=== PATIENT | male | born 1985 | race Two or more races ===

== ENCOUNTER 2023-12-22 16:57 | Emergency (ER) | payer OTHER ==
[~2023-12-22] VITALS: Ht 182.9 cm; Wt 90.7 kg
[~2023-12-22 16:57] MED LIST: DEPAKOTE ER500 MG PO; ECOTRIN81 MG; NEURONTIN300 MG PO; ZESTRIL20 MG PO
[2023-12-22] MEDS ORDERED: NORFLEX100MG PO (21:41)
== END 2023-12-22 22:00 ==
LOC: ER 16:59
DX: S89.81XA Other specified injuries of right lower leg, initial encounter (principal); W01.0XXA Fall on same level from slipping, tripping and stumbling without subsequent striking against object, initial encounter; Y93.89 Activity, other specified; Y92.59 Other trade areas as the place of occurrence of the external cause; S99.811A Other specified injuries of right ankle, initial encounter; Z88.8 Allergy status to other drugs, medicaments and biological substances; I10 Essential (primary) hypertension; F32.89 Other specified depressive episodes; S20.229A Contusion of unspecified back wall of thorax, initial encounter
CPT/HCPCS: 72100; 73560; 73610; 73630; 96372; 99283; J2360

== ENCOUNTER 2024-01-24 15:35 | Emergency (ER) | payer OTHER ==
[~2024-01-24] VITALS: Ht 180.3 cm; Wt 90.7 kg
[~2024-01-24 15:35] MED LIST changes: +NORFLEX100MG PO
[2024-01-24] MEDS ORDERED: CEFTRIAXONE SODIUM 1,000 MG VIAL IM ONE (17:15)
[2024-01-24] MEDS ORDERED: KETOROLAC TROMETHAMINE 60 MG VIAL IM ONE (17:15)
== END 2024-01-24 17:22 | disposition home or self-care (01) ==
LOC: ER 15:36
DX: S60.572A Other superficial bite of hand of left hand, initial encounter (principal); W54.0XXA Bitten by dog, initial encounter; Y93.9 Activity, unspecified; Y92.89 Other specified places as the place of occurrence of the external cause; Y99.9 Unspecified external cause status; Z88.8 Allergy status to other drugs, medicaments and biological substances

== ENCOUNTER 2024-06-02 19:14 | Emergency (ER) | payer OTHER ==
[~2024-06-02] VITALS: Ht 167.6 cm; Wt 113.4 kg
[2024-06-02] MEDS ORDERED: MICATIN14 GM TOP (23:37)
[2024-06-02] MEDS ORDERED: NASAL MIST126 ML NASAL (23:37)
== END 2024-06-02 23:48 | disposition home or self-care (01) ==
LOC: ER 19:15
DX: S09.8XXA Other specified injuries of head, initial encounter (principal); Y08.89XA Assault by other specified means, initial encounter; Y93.89 Activity, other specified; Y92.89 Other specified places as the place of occurrence of the external cause; Y99.8 Other external cause status; Z88.6 Allergy status to analgesic agent

== ENCOUNTER 2024-06-29 16:16 | Emergency (ER) | payer OTHER ==
[~2024-06-29] VITALS: Ht 200.7 cm; Wt 133.4 kg
[~2024-06-29 16:16] MED LIST changes: +MICATIN14 GM TOP; +NASAL MIST126 ML NASAL
[2024-06-29] MEDS ORDERED: DECADRON (16:43)
[2024-06-29] MEDS ORDERED: CLINDAMYCIN PHOSPHATE 150 MG/ML (900mg) ONE (18:10)
[2024-06-29] MEDS ORDERED: CLINDAMYCIN PHOSPHATE 150 MG/ML (600mg) IV ONE (18:15)
[2024-06-29] MEDS ORDERED: 0.9 % SODIUM CHLORIDE 1,000 ML IV ONE (18:15)
[2024-06-29 18:31] LABS: HEMATOCRIT 44.3 % (39.0-48.0); HEMOGLOBIN 14.8 g/dL (13-16.00); MEAN CELL VOLUME 83.4 fL (80.0-100.00); MEAN CORPUSCULAR HEMOGLOBIN 27.8 pg (27.00-32.0); MEAN CORPUSCULAR HGB CONC 33.4 g/dl (32.0-36.0); PLATELET COUNT 228 K/uL (150-450); RED BLOOD COUNT 5.31 M/uL (4.00-6.00); RED CELL DISTRIBUTION WIDTH 14.5 % (11.5-14.5)
[2024-06-29 18:51] LABS: ERYTHROCYTE SEDIMENTATION RATE 4 mm/hr
[2024-06-29 19:37] LABS: ANION GAP 8 (10.0-20.0); BLOOD UREA NITROGEN 12 mg/dL (7-18); BUN CREA RATIO 16 (7.0-25.0); CALCIUM 9.6 mg/dL (8.5-10.1); CARBON DIOXIDE 32 mEq/L (21-32); CHLORIDE 104 mmol/L (98-107); CREATININE SERUM 0.76 mg/dL (0.70-1.30); GFR 114.78; GLUCOSE FASTING 83 mg/dL (65-100); OSMOLALITY SERUM 278 MOSM/KG (275-295); POTASSIUM 4.03 mEq/L (3.5-5.1); SODIUM 140 mmol/L (136-145)
[2024-06-29 19:45] LABS: C-REACTIVE PROTEIN < 0.29 MG/DL (0.00-0.29)
== END 2024-06-29 20:41 | disposition home or self-care (01) ==
LOC: ER 16:17
PROVIDERS: General Practice
DX: L97.819 Non-pressure chronic ulcer of other part of right lower leg with unspecified severity (principal); Z88.8 Allergy status to other drugs, medicaments and biological substances; I10 Essential (primary) hypertension

== ENCOUNTER 2024-07-15 18:16 | Inpatient (IN) | payer OTHER ==
[~2024-07-15] VITALS: Ht 170.2 cm; Wt 86.2 kg
[~2024-07-15 18:16] MED LIST changes: +DECADRON
--- NOTE | 2024-07-15 19:15 | NUR ---
SE RECIBE MASCULINO ALERTA Y ORIENTADO X3 CUAL REFIERE PRESENTA DAVINA ULCERA EN PIE DERECHO QUE NO MEJORA. SE BELEN S/V Y SE UBICA.
[2024-07-15] MEDS ORDERED: CEFTRIAXONE SODIUM 2,000 MG VIAL IV STA (19:43)
[2024-07-15] MEDS ORDERED: CEFTRIAXONE SODIUM 2,000 MG VIAL ONE (19:47)
--- NOTE | 2024-07-15 20:05 | NUR ---
SE STAR MUESTRA DE LABS SE CANALIZA Y SE ADMINISTRA MED ALLEN ORDEN MEDICA
[2024-07-15 20:07] LABS: HEMATOCRIT 43.2 % (39.0-48.0); HEMOGLOBIN 14.6 g/dL (13-16.00); MEAN CELL VOLUME 84.1 fL (80.0-100.00); MEAN CORPUSCULAR HEMOGLOBIN 28.5 pg (27.00-32.0); MEAN CORPUSCULAR HGB CONC 33.9 g/dl (32.0-36.0); PLATELET COUNT 241 K/uL (150-450); RED BLOOD COUNT 5.13 M/uL (4.00-6.00); RED CELL DISTRIBUTION WIDTH 13.7 % (11.5-14.5)
[2024-07-15 20:21] LABS: CALCIUM 9.4 mg/dL (8.5-10.1); CREATININE SERUM 0.82 mg/dL (0.70-1.30); GFR 105.15; POTASSIUM 4.2 mEq/L (3.5-5.1)
[2024-07-15] MEDS ORDERED: PROMETHAZINE HCL 25 MG/ML AMPUL IM ONE (23:45)
[2024-07-15] MEDS ORDERED: ACETAMINOPHEN 500 MG GEL..CAP PO PRN (23:45)
[2024-07-15] MEDS ORDERED: MEPERIDINE HCL/PF 25 MG/ML VIAL IM ONE (23:45)
[2024-07-15] MEDS ORDERED: 0.9 % SODIUM CHLORIDE 1,000 ML IV SCH (23:45)
[2024-07-15] MEDS ORDERED: VANCOMYCIN HCL 1,000 MG VIAL IV SCH (23:52)
[2024-07-15] MEDS ORDERED: DIVALPROEX SODIUM 500 MG TABLET.DR PO SCH (23:54)
[2024-07-16 02:49] LABS: INR 1.02; PARTIAL THROMBOPLASTIN TIME 28.2 SECONDS (22.0-34.0); PROTHROMBIN TIME 11.1 SECONDS (9.0-11.5)
[2024-07-16] MEDS ORDERED: MEPERIDINE HCL/PF 25 MG/ML VIAL IM SCH (05:00)
[2024-07-16 05:14] LABS: PH,URINE 5.5 (5.0-8.0); URINE APPEARANCE Clear; URINE BILIRRUBIN Negative (NEGATIVE); URINE BLOOD Negative; URINE COLOR Yellow; URINE GLUCOSE Negative (NEGATIVE); URINE KETONE Negative (NEGATIVE); URINE LEUKOCYTE Negative; URINE NITRATE Negative; URINE PROTEIN Negative (NEGATIVE); URINE UROBILINOGEN 0.2 E.U./dl
[2024-07-16 05:15] LABS: URINE BACTERIA 7.5 uL (0.0-1933); URINE RBC 2.4 uL (0.0-20.8); URINE WBC 2.6 uL (0.0-23.2)
[2024-07-16 05:37] LABS: URINE EPITHELIAL CELLS 0.6 uL (0.0-38.8)
[2024-07-16 08:33] VITALS: BP 130/83; O2SAT 99
[2024-07-16] MEDS ORDERED: LISINOPRIL 20 MG TABLET PO SCH (09:00)
[2024-07-16] MEDS ORDERED: FAMOTIDINE/PF 20 MG in 0.9 % SODIUM CHLORIDE 8 ML IV PUSH SCH (09:00)
[2024-07-16] MEDS ORDERED: CEFTRIAXONE SODIUM 2,000 MG in 0.9 % SODIUM CHLORIDE 100 ML IV SCH (09:00)
[2024-07-16 15:08] VITALS: BP 146/76; O2SAT 100
[2024-07-17 00:29] VITALS: BP 147/81; O2SAT 98
[2024-07-17 08:16] VITALS: BP 134/84; O2SAT 99
[2024-07-17 15:38] VITALS: BP 113/58; O2SAT 99
== END 2024-07-17 17:19 | disposition left against medical advice (07) | DRG 264 ==
LOC: ER 18:18 → SEC-K 23:56 → O/R 07-16 10:39 → SEC-K 07-16 10:40 → MEDI 07-17 15:10
PROVIDERS: General Practice; ADMIT Internal Medicine; ATTEND Internal Medicine
PROC: B54DZZZ Ultrasonography of Bilateral Lower Extremity Veins (ICD-10-PCS; 2024-07-15)
PROC: 0JBQ0ZZ Excision of Right Foot Subcutaneous Tissue and Fascia, Open Approach (ICD-10-PCS; principal; 2024-07-16)
PROC: B44HZZZ Ultrasonography of Bilateral Lower Extremity Arteries (ICD-10-PCS; 2024-07-16)
DX: I83.013 Varicose veins of right lower extremity with ulcer of ankle (principal); L97.313 Non-pressure chronic ulcer of right ankle with necrosis of muscle; I87.2 Venous insufficiency (chronic) (peripheral); E66.01 Morbid (severe) obesity due to excess calories; I10 Essential (primary) hypertension; F99 Mental disorder, not otherwise specified

== ENCOUNTER 2024-07-18 15:39 | Inpatient (IN) | payer OTHER ==
[~2024-07-18] VITALS: Ht 200.7 cm; Wt 133.4 kg
[2024-07-18] MEDS ORDERED: FAMOtidine 10 MG/ML (4ML VIAL) IV ONE (16:30)
[2024-07-18] MEDS ORDERED: 0.9 % SODIUM CHLORIDE 1,000 ML IV ONE (16:30)
[2024-07-18] MEDS ORDERED: FAMOTIDINE/PF 20 MG/2 ML VIAL ONE (16:45)
[2024-07-18] MEDS ORDERED: GABAPENTIN 300 MG CAPSULE PO SCH (17:00)
[2024-07-18 17:19] LABS: HEMATOCRIT 41.7 % (39.0-48.0); MEAN CELL VOLUME 83.8 fL (80.0-100.00); MEAN CORPUSCULAR HEMOGLOBIN 28.1 pg (27.00-32.0); MEAN CORPUSCULAR HGB CONC 33.6 g/dl (32.0-36.0); PLATELET COUNT 232 K/uL (150-450); RED BLOOD COUNT 4.98 M/uL (4.00-6.00); RED CELL DISTRIBUTION WIDTH 14.3 % (11.5-14.5)
[2024-07-18 17:30] LABS: INR 1.03; PROTHROMBIN TIME 11.2 SECONDS (9.0-11.5)
[2024-07-18 17:34] LABS: BILIRUBIN TOTAL 0.28 mg/dL (0.3-1.2); CREATININE SERUM 0.86 mg/dL (0.70-1.30); GFR 99.52; POTASSIUM 4.33 mEq/L (3.5-5.1)
[2024-07-18 17:56] LABS: URINE APPEARANCE Clear; URINE BILIRRUBIN Negative (NEGATIVE); URINE BLOOD Negative; URINE COLOR Yellow; URINE GLUCOSE Negative (NEGATIVE); URINE KETONE Negative (NEGATIVE); URINE LEUKOCYTE Negative; URINE NITRATE Negative; URINE PROTEIN Negative (NEGATIVE); URINE UROBILINOGEN 0.2 E.U./dl
[2024-07-18 17:57] LABS: URINE RBC 2.9 uL (0.0-20.8)
[2024-07-18 17:58] LABS: URINE BACTERIA 0 uL (0.0-1933); URINE EPITHELIAL CELLS 0.1 uL (0.0-38.8); URINE WBC 0 uL (0.0-23.2)
[2024-07-18] MEDS ORDERED: 0.9 % SODIUM CHLORIDE 1,000 ML IV SCH (18:45)
[2024-07-18] MEDS ORDERED: CEFTRIAXONE SODIUM 2,000 MG in 0.9 % SODIUM CHLORIDE 100 ML IV SCH (19:00)
[2024-07-18] MEDS ORDERED: FAMOTIDINE/PF 20 MG in 0.9 % SODIUM CHLORIDE 8 ML IV PUSH SCH (19:01)
[2024-07-18] MEDS ORDERED: CEFTRIAXONE SODIUM 2,000 MG VIAL ONE (19:41)
[2024-07-18 23:08] VITALS: BP 151/77; O2SAT 100
[2024-07-19 02:15] VITALS: BP 160/75; O2SAT 97
[2024-07-19] MEDS ORDERED: ENOXAPARIN SODIUM 40 MG/0.4 ML SYRINGE SUBCUTANEO SCH (09:00)
[2024-07-19] MEDS ORDERED: LISINOPRIL 20 MG TABLET PO SCH (09:00)
[2024-07-19 09:07] VITALS: BP 127/61; O2SAT 99
[2024-07-19] MEDS ORDERED: FAMOTIDINE/PF 20 MG/2 ML VIAL ONE (09:13)
[2024-07-19] MEDS ORDERED: DIVALPROEX SODIUM 500 MG TABLET.DR PO SCH (17:00)
[2024-07-19] MEDS ORDERED: AMPICILLIN SODIUM/SULBACTAM NA 3,000 MG VIAL IV SCH (18:00)
[2024-07-19 18:59] VITALS: BP 137/76
[2024-07-20 03:30] VITALS: BP 118/63; O2SAT 98
[2024-07-20] MEDS ORDERED: FAMOTIDINE/PF 20 MG/2 ML VIAL ONE (08:17)
[2024-07-20 10:14] VITALS: BP 166/82
[2024-07-20] MEDS ORDERED: ACETAMINOPHEN 500 MG GEL..CAP PO PRN (10:15)
[2024-07-20 18:57] VITALS: BP 140/85; O2SAT 97
[2024-07-21 02:01] VITALS: BP 143/80; O2SAT 95
[2024-07-21] MEDS ORDERED: FAMOTIDINE/PF 20 MG/2 ML VIAL ONE (08:26)
[2024-07-21 09:22] VITALS: BP 145/84
[2024-07-21 20:18] VITALS: BP 160/85; O2SAT 98
[2024-07-22 01:44] VITALS: BP 142/101; BP 150/90; O2SAT 100; O2SAT 96
[2024-07-22 09:38] VITALS: BP 125/76
[2024-07-22 16:00] VITALS: BP 153/89
[2024-07-23 09:36] VITALS: BP 162/84; O2SAT 98
[2024-07-23 18:20] VITALS: BP 144/90
[2024-07-24 02:00] VITALS: BP 136/67
[2024-07-24 07:51] LABS: HEMATOCRIT 39.6 % (39.0-48.0); HEMOGLOBIN 13.3 g/dL (13-16.00); MEAN CELL VOLUME 85.6 fL (80.0-100.00); MEAN CORPUSCULAR HEMOGLOBIN 28.8 pg (27.00-32.0); MEAN CORPUSCULAR HGB CONC 33.7 g/dl (32.0-36.0); PLATELET COUNT 199 K/uL (150-450); RED BLOOD COUNT 4.62 M/uL (4.00-6.00); RED CELL DISTRIBUTION WIDTH 13.9 % (11.5-14.5)
[2024-07-24 08:51] VITALS: BP 157/96
[2024-07-24 09:14] LABS: ALBUMIN 3.4 gm/dL (3.4-5.0); BILIRUBIN TOTAL 0.3 mg/dL (0.3-1.2); CALCIUM 8.7 mg/dL (8.5-10.1); CREATININE SERUM 0.89 mg/dL (0.70-1.30); GFR 95.66; GLOBULINA 3.2 G/DL (2.4-3.5); POTASSIUM 4.19 mEq/L (3.5-5.1); TOTAL PROTEIN 6.6 gm/dL (6.4-8.2)
[2024-07-24 18:43] VITALS: BP 122/72; O2SAT 98
[2024-07-25 02:00] VITALS: BP 137/83
[2024-07-25 09:21] VITALS: BP 162/80
[2024-07-25 18:05] VITALS: BP 159/54
[2024-07-26 01:29] VITALS: BP 126/72; O2SAT 97
== END 2024-07-26 11:24 | disposition home or self-care (01) | DRG 982 ==
LOC: ER 15:40 → MEDJ 19:51
PROVIDERS: General Practice; ADMIT Internal Medicine; ATTEND Internal Medicine
PROC: 0JDQ0ZZ Extraction of Right Foot Subcutaneous Tissue and Fascia, Open Approach (ICD-10-PCS; 2024-07-19)
PROC: 0JDQ0ZZ Extraction of Right Foot Subcutaneous Tissue and Fascia, Open Approach (ICD-10-PCS; principal; 2024-07-24)
DX: I83.013 Varicose veins of right lower extremity with ulcer of ankle (principal); L97.319 Non-pressure chronic ulcer of right ankle with unspecified severity; L08.9 Local infection of the skin and subcutaneous tissue, unspecified; B96.89 Other specified bacterial agents as the cause of diseases classified elsewhere; I10 Essential (primary) hypertension; F99 Mental disorder, not otherwise specified; E66.9 Obesity, unspecified; I87.2 Venous insufficiency (chronic) (peripheral)

== ENCOUNTER 2024-10-21 20:41 | Emergency (ER) | payer OTHER ==
[~2024-10-21] VITALS: Ht 180.3 cm; Wt 113.4 kg
[2024-10-21] MEDS ORDERED: CEFTRIAXONE SODIUM 1,000 MG VIAL IV ONE (21:15)
[2024-10-21 23:19] LABS: HEMATOCRIT 43.9 % (39.0-48.0); HEMOGLOBIN 14.2 g/dL (13-16.00); MEAN CORPUSCULAR HEMOGLOBIN 27.1 pg (27.00-32.0); MEAN CORPUSCULAR HGB CONC 32.3 g/dl (32.0-36.0); PLATELET COUNT 263 K/uL (150-450); RED BLOOD COUNT 5.22 M/uL (4.00-6.00); RED CELL DISTRIBUTION WIDTH 13.9 % (11.5-14.5)
[2024-10-21 23:55] LABS: ALBUMIN 3.8 gm/dL (3.4-5.0); BILIRUBIN TOTAL 0.21 mg/dL (0.3-1.2); CALCIUM 9.1 mg/dL (8.5-10.1); CREATININE SERUM 0.99 mg/dL (0.70-1.30); GFR 84.6; GLOBULINA 4.1 G/DL (2.4-3.5); POTASSIUM 3.89 mEq/L (3.5-5.1); TOTAL PROTEIN 7.9 gm/dL (6.4-8.2)
[2024-10-22 00:02] LABS: C-REACTIVE PROTEIN 1.03 MG/DL (0.00-0.29)
[2024-10-22 00:34] LABS: ERYTHROCYTE SEDIMENTATION RATE 34 mm/hr
== END 2024-10-22 03:16 | disposition home or self-care (01) ==
LOC: ER 20:41
PROVIDERS: General Practice
DX: R60.0 Localized edema (principal); Z88.8 Allergy status to other drugs, medicaments and biological substances; I83.015 Varicose veins of right lower extremity with ulcer other part of foot; I83.025 Varicose veins of left lower extremity with ulcer other part of foot; L97.828 Non-pressure chronic ulcer of other part of left lower leg with other specified severity; L97.818 Non-pressure chronic ulcer of other part of right lower leg with other specified severity; I12.9 Hypertensive chronic kidney disease with stage 1 through stage 4 chronic kidney disease, or unspecified chronic kidney disease

== ENCOUNTER → 2025-04-30 | Emergency (ER) | payer OTHER | END | disposition left against medical advice (07) | LOC: ER 11:44 | DX: Z53.21 Procedure and treatment not carried out due to patient leaving prior to being seen by health care provider (principal) ==

== ENCOUNTER 2025-06-26 17:09 | Emergency (ER) | payer OTHER ==
[~2025-06-26] VITALS: Ht 180.3 cm; Wt 138.3 kg
[2025-06-26] MEDS ORDERED: PIPERACILLIN/TAZOBACTAM SODIUM 3.375 GM VIAL IV ONE ×2 (18:45→19:08)
[2025-06-26 19:35] LABS: BASO % 0.5 % (0.1-1.2); EOS # 0.30 (0.04-0.54); EOS % 2.7 % (0.7-7.0); LYMPH # 2.19 (1.18-3.74); LYMPH % 20.1 % (19.3-53.1); MEAN PLATELET VOLUME 9.90 fl (9.4-12.4); MONO # 0.83 (0.24-0.82); MONO % 7.6 % (4.7-12.5); NEUT # 7.51 (1.56-6.13); NEUT % 68.8 % (34.0-71.1); RED CELL DISTRIBUTION WIDTH 13.0 % (11.6-14.4)
[2025-06-26 19:40] LABS: ERYTHROCYTE SEDIMENTATION RATE 6 mm/hr (0-15)
[2025-06-26 19:59] LABS: ALT/SGPT 25 U/L (12-78); AST/SGOT 18 U/L (15-37); BILIRUBIN TOTAL 0.24 mg/dL (0.3-1.2); BUN CREA RATIO 20 (7.0-25.0); CREATININE SERUM 0.76 mg/dL (0.70-1.30); GFR 114.18; GLOBULINA 3.2 G/DL (2.4-3.5); GLUCOSE FASTING 76 mg/dL (65-100); OSMOLALITY SERUM 279 MOSM/KG (275-295)
[2025-06-26] MEDS ORDERED: PEPCID AC20 MG PO (20:16)
[2025-06-26] MEDS ORDERED: CEFUROXIME500 MG PO (20:16)
== END 2025-06-26 20:50 | disposition home or self-care (01) ==
LOC: ER 17:12
PROVIDERS: General Practice
DX: L03.90 Cellulitis, unspecified (principal); R60.0 Localized edema; I10 Essential (primary) hypertension; E11.9 Type 2 diabetes mellitus without complications; Z88.6 Allergy status to analgesic agent

== ENCOUNTER 2025-07-14 16:02 | Inpatient (IN) | payer OTHER ==
[~2025-07-14] VITALS: Ht 177.8 cm; Wt 149.7 kg
[~2025-07-14 16:02] MED LIST changes: +CEFUROXIME500 MG PO; +PEPCID AC20 MG PO
[2025-07-14] MEDS ORDERED: ATIVAN0.5 M1 PO (16:15)
[2025-07-14] MEDS ORDERED: VANCOMYCIN HCL 1,000 MG VIAL IV ONE (16:45)
[2025-07-14 17:15] LABS: BASO % 0.4 % (0.1-1.2); EOS # 0.31 (0.04-0.54); EOS % 2.9 % (0.7-7.0); LYMPH # 1.85 (1.18-3.74); LYMPH % 17.5 % (19.3-53.1); MEAN PLATELET VOLUME 9.90 fl (9.4-12.4); MONO # 0.67 (0.24-0.82); MONO % 6.3 % (4.7-12.5); NEUT # 7.65 (1.56-6.13); NEUT % 72.5 % (34.0-71.1); RED CELL DISTRIBUTION WIDTH 12.6 % (11.6-14.4)
[2025-07-14 17:23] LABS: ERYTHROCYTE SEDIMENTATION RATE 18 mm/hr (0-15)
[2025-07-14 18:06] LABS: ALT/SGPT 26.0 U/L (12-78); AST/SGOT 14.0 U/L (15-37); BILIRUBIN TOTAL 0.19 mg/dL (0.3-1.2); BUN CREA RATIO 21.0 (7.0-25.0); CREATININE SERUM 0.72 mg/dL (0.70-1.30); GFR 121.53; GLOBULINA 3.8 G/DL (2.4-3.5); GLUCOSE FASTING 138.0 mg/dL (65-100); OSMOLALITY SERUM 279.0 MOSM/KG (275-295)
[2025-07-14] MEDS ORDERED: 0.9 % SODIUM CHLORIDE 1,000 ML IV SCH (18:30)
[2025-07-14] MEDS ORDERED: VANCOMYCIN HCL 1,000 MG VIAL IV SCH (18:35)
[2025-07-14] MEDS ORDERED: CEFTRIAXONE SODIUM 2,000 MG in 0.9 % SODIUM CHLORIDE 100 ML IV SCH (18:35)
[2025-07-14] MEDS ORDERED: FAMOTIDINE/PF 20 MG in 0.9 % SODIUM CHLORIDE 8 ML IV PUSH SCH (18:36)
[2025-07-14] MEDS ORDERED: GABAPENTIN 300 MG CAPSULE PO SCH (18:37)
[2025-07-14] MEDS ORDERED: ACETAMINOPHEN 500 MG GEL..CAP PO PRN (18:45)
[2025-07-14] MEDS ORDERED: ONDANSETRON HCL 4 MG in 0.9 % SODIUM CHLORIDE 50 ML IV PRN (18:45)
[2025-07-14 22:55] LABS: INR 0.96
[2025-07-15 02:11] VITALS: BP 170/69; O2SAT 94
[2025-07-15 08:37] VITALS: BP 156/94; O2SAT 99
[2025-07-15] MEDS ORDERED: LISINOPRIL 20 MG TABLET PO SCH (09:00)
[2025-07-15] MEDS ORDERED: DIVALPROEX SODIUM 500 MG TABLET.DR PO SCH ×2 (09:00→21:00)
[2025-07-15] MEDS ORDERED: ENOXAPARIN SODIUM 40 MG/0.4 ML SYRINGE SUBCUTANEO SCH (09:00)
[2025-07-15] MEDS ORDERED: PHENOL 177 ML BOTTLE MM SCH (09:00)
[2025-07-15 16:53] VITALS: BP 153/90
[2025-07-16 02:30] VITALS: BP 167/74; O2SAT 99
[2025-07-16 09:03] VITALS: BP 138/89; O2SAT 100
[2025-07-16 16:41] VITALS: BP 147/97
[2025-07-17 00:53] VITALS: BP 140/90; O2SAT 98
[2025-07-17 07:57] VITALS: BP 123/85
[2025-07-17] MEDS ORDERED: LINEZOLID IN DEXTROSE 5% 600 MG/300 ML PIGGYBAG IV SCH (17:00)
[2025-07-17 18:15] VITALS: BP 157/78; O2SAT 100
[2025-07-18 01:01] VITALS: BP 121/76; O2SAT 98
[2025-07-18 08:00] VITALS: BP 121/82; O2SAT 97
[2025-07-18] MEDS ORDERED: DOXYCYCLINE HYCLATE 100MG IV ONE (16:24)
[2025-07-18] MEDS ORDERED: EMOLLIENTS 6 OZ BOTTLE TOP SCH (17:00)
[2025-07-18] MEDS ORDERED: DOXYCYCLINE HYCLATE 100MG IV SCH (17:00)
[2025-07-18 18:18] VITALS: BP 123/73; O2SAT 100
[2025-07-19] MEDS ORDERED: DOXYCYCLINE HYCLATE 100MG IV ONE ×2 (00:13→15:41)
[2025-07-19 00:56] VITALS: BP 120/66; O2SAT 99
[2025-07-19 03:03] LABS: URINE APPEARANCE Clear; URINE BILIRRUBIN Negative (NEGATIVE); URINE BLOOD Negative; URINE COLOR Yellow; URINE GLUCOSE Negative (NEGATIVE); URINE KETONE Negative (NEGATIVE); URINE LEUKOCYTE Negative; URINE NITRATE Negative; URINE PROTEIN Negative (NEGATIVE); URINE UROBILINOGEN 0.2 E.U./dl
[2025-07-19 03:18] LABS: URINE BACTERIA 1.1 uL (0.0-1933); URINE CAST 0.00 uL (0.0-1.40); URINE EPITHELIAL CELLS 0.0 uL (0.0-38.8); URINE RBC 0.8 uL (0.0-20.8); URINE WBC 0.1 uL (0.0-23.2)
[2025-07-19 08:18] VITALS: BP 115/74; O2SAT 95
[2025-07-19 18:31] VITALS: BP 147/87; O2SAT 98
[2025-07-20] MEDS ORDERED: DOXYCYCLINE HYCLATE 100MG IV ONE ×2 (00:09→15:52)
[2025-07-20 01:02] VITALS: BP 133/76; O2SAT 99
[2025-07-20 11:14] VITALS: BP 130/74; BP 144/83; O2SAT 97; O2SAT 98
[2025-07-20 16:56] VITALS: BP 122/84; O2SAT 96
[2025-07-21 00:45] VITALS: BP 134/90; O2SAT 96
[2025-07-21] MEDS ORDERED: DOXYCYCLINE HYCLATE 100MG IV ONE (04:30)
[2025-07-21 08:20] VITALS: BP 144/78
== END 2025-07-21 14:17 | disposition home or self-care (01) | DRG 572 ==
LOC: ER 16:02 → MEDJ 19:07 → MEDI 19:07 → MEDJ 07-17 14:46
PROVIDERS: General Practice; ADMIT Internal Medicine; ATTEND Internal Medicine
PROC: B44HZZZ Ultrasonography of Bilateral Lower Extremity Arteries (ICD-10-PCS; principal; 2025-07-16)
PROC: 8E0ZXY6 Isolation (ICD-10-PCS; 2025-07-17)
PROC: 0JBQ0ZZ Excision of Right Foot Subcutaneous Tissue and Fascia, Open Approach (ICD-10-PCS; 2025-07-19)
DX: L97.319 Non-pressure chronic ulcer of right ankle with unspecified severity (principal); L08.9 Local infection of the skin and subcutaneous tissue, unspecified; B95.62 Methicillin resistant Staphylococcus aureus infection as the cause of diseases classified elsewhere; B95.61 Methicillin susceptible Staphylococcus aureus infection as the cause of diseases classified elsewhere; I10 Essential (primary) hypertension; L85.3 Xerosis cutis; I87.2 Venous insufficiency (chronic) (peripheral); F31.9 Bipolar disorder, unspecified

== ENCOUNTER 2025-09-01 14:27 | Inpatient (IN) | payer OTHER ==
[~2025-09-01] VITALS: Ht 170.2 cm; Wt 145.1 kg
[~2025-09-01 14:27] MED LIST changes: +ATIVAN0.5 M1 PO; +METFORMIN HCL500 M3 PO
--- NOTE | 2025-09-01 15:10 | NUR ---
PTE ALERTA Y ORIENTADA X3 SE BELEN S/V. PTE REFIERE QUE VIENE A ER, YA QUE PRESENTA CELLULITIS EN FARIDANA CM. SE UBICA A PTE EN GAGE.
[2025-09-01 18:22] LABS: BASO % 0.6 % (0.1-1.2); EOS # 0.24 (0.04-0.54); EOS % 2.7 % (0.7-7.0); LYMPH # 1.97 (1.18-3.74); LYMPH % 22.3 % (19.3-53.1); MEAN PLATELET VOLUME 10.10 fl (9.4-12.4); MONO # 0.63 (0.24-0.82); MONO % 7.1 % (4.7-12.5); NEUT # 5.94 (1.56-6.13); NEUT % 67.1 % (34.0-71.1); RED CELL DISTRIBUTION WIDTH 13.2 % (11.6-14.4)
[2025-09-01 18:30] LABS: ERYTHROCYTE SEDIMENTATION RATE 20 mm/hr (0-15)
--- NOTE | 2025-09-01 18:38 | NUR ---
SE ORIENTA A PACIENTE SOBRE TRATAMIENTO ALLEN ORDEN MEDICA EL MISMO REFIERE ENTENDER Y ACEPTA.
[2025-09-01 18:39] LABS: INR 1.0
[2025-09-01 18:48] LABS: ALT/SGPT 34.0 U/L (12-78); AST/SGOT 26.0 U/L (15-37); BILIRUBIN TOTAL 0.42 mg/dL (0.3-1.2); BUN CREA RATIO 19.0 (7.0-25.0); CREATININE SERUM 0.8 mg/dL (0.70-1.30); GFR 107.62; GLOBULINA 3.8 G/DL (2.4-3.5); GLUCOSE FASTING 107.0 mg/dL (65-100); OSMOLALITY SERUM 277.0 MOSM/KG (275-295)
[2025-09-01] MEDS ORDERED: VANCOMYCIN HCL 1,000 MG VIAL IV SCH (21:38)
[2025-09-01] MEDS ORDERED: FAMOTIDINE/PF 20 MG in 0.9 % SODIUM CHLORIDE 8 ML IV PUSH SCH (21:39)
[2025-09-01] MEDS ORDERED: DEXTROSE 50 % IN WATER 0.5 G/ML DISP.SYRIN IV PRN (21:45)
[2025-09-01] MEDS ORDERED: INSULIN LISPRO 1,000 UNIT/10 ML UNITS SUBCUTANEO PRN (21:45)
[2025-09-01] MEDS ORDERED: ACETAMINOPHEN 325 MG TABLET PO PRN (21:45)
[2025-09-01] MEDS ORDERED: 0.9 % SODIUM CHLORIDE 1,000 ML IV SCH (21:45)
[2025-09-01] MEDS ORDERED: ENOXAPARIN SODIUM 40 MG/0.4 ML SYRINGE SUBCUTANEO SCH (21:49)
[2025-09-01] MEDS ORDERED: LISINOPRIL 20 MG TABLET PO SCH (21:49)
[2025-09-01 23:07] VITALS: BP 120/72
[2025-09-02 01:56] LABS: URINE APPEARANCE Clear; URINE BILIRRUBIN Negative (NEGATIVE); URINE BLOOD Negative; URINE COLOR Yellow; URINE GLUCOSE Negative (NEGATIVE); URINE KETONE Negative (NEGATIVE); URINE LEUKOCYTE Negative; URINE NITRATE Negative; URINE PROTEIN Negative (NEGATIVE); URINE UROBILINOGEN 0.2 E.U./dl
[2025-09-02 02:00] LABS: URINE BACTERIA 4.8 uL (0.0-1933); URINE RBC 2.9 uL (0.0-20.8); URINE WBC 2.1 uL (0.0-23.2)
[2025-09-02 02:05] LABS: URINE CAST 0.14 uL (0.0-1.40); URINE EPITHELIAL CELLS 0.9 uL (0.0-38.8)
[2025-09-02 03:51] VITALS: BP 163/85; O2SAT 98
[2025-09-02] MEDS ORDERED: ACETAMINOPHEN 500 MG GEL..CAP PO PRN (07:15)
[2025-09-02 09:01] VITALS: BP 142/94
[2025-09-02] MEDS ORDERED: CEFEPIME HCL 2,000 MG in DEXTROSE 5 % IN WATER 100 ML IV SCH (11:37)
[2025-09-02] MEDS ORDERED: CEFTRIAXONE SODIUM 2,000 MG in 0.9 % SODIUM CHLORIDE 100 ML IV NR (13:15)
[2025-09-02] MEDS ORDERED: CEFTRIAXONE SODIUM 2,000 MG in 0.9 % SODIUM CHLORIDE 100 ML IV SCH (17:00)
[2025-09-02] MEDS ORDERED: LINEZOLID IN DEXTROSE 5% 300 ML IV SCH (17:00)
[2025-09-02 18:09] VITALS: BP 109/86
[2025-09-02 21:36] LABS: BUN CREA RATIO 17.0 (7.0-25.0); CREATININE SERUM 0.69 mg/dL (0.70-1.30); GFR 127.65; GLUCOSE FASTING 120.0 mg/dL (65-100); OSMOLALITY SERUM 278.0 MOSM/KG (275-295)
[2025-09-02] MEDS ORDERED: TRAMADOL HCL 50 MG TABLET PO SCH (21:45)
[2025-09-03 01:26] VITALS: BP 98/60; O2SAT 97
[2025-09-03] MEDS ORDERED: CEFTRIAXONE SODIUM 2,000 MG in 0.9 % SODIUM CHLORIDE 100 ML IV SCH (09:00)
[2025-09-03 09:32] VITALS: BP 110/60; O2SAT 99
[2025-09-03] MEDS ORDERED: GABAPENTIN 600 MG TABLET PO SCH (17:00)
[2025-09-03 18:14] VITALS: BP 160/85; O2SAT 98
[2025-09-03 19:46] LABS: BASO % 0.5 % (0.1-1.2); EOS # 0.28 (0.04-0.54); EOS % 3.5 % (0.7-7.0); LYMPH # 2.01 (1.18-3.74); LYMPH % 24.8 % (19.3-53.1); MEAN PLATELET VOLUME 12.40 fl (9.4-12.4); MONO # 0.49 (0.24-0.82); MONO % 6.1 % (4.7-12.5); NEUT # 5.24 (1.56-6.13); NEUT % 64.7 % (34.0-71.1); RED CELL DISTRIBUTION WIDTH 13.4 % (11.6-14.4)
[2025-09-04 03:24] VITALS: BP 111/64; O2SAT 96
[2025-09-04 09:14] VITALS: BP 134/84; O2SAT 100
[2025-09-04 20:43] VITALS: BP 132/84; O2SAT 100
[2025-09-05 03:15] VITALS: BP 158/107; O2SAT 97
[2025-09-05 08:42] VITALS: BP 150/84; O2SAT 98
[2025-09-05 17:06] VITALS: BP 108/65
[2025-09-06 02:23] VITALS: BP 149/84; O2SAT 97
[2025-09-06 11:38] VITALS: BP 119/79; O2SAT 95
[2025-09-06] MEDS ORDERED: FAMOTIDINE/PF 20 MG/2 ML VIAL IV SCH (17:00)
[2025-09-06 19:29] VITALS: BP 115/73
[2025-09-07 03:02] VITALS: BP 141/86; O2SAT 95
[2025-09-07 09:35] VITALS: BP 130/84; O2SAT 98
[2025-09-08 01:37] VITALS: BP 157/100; O2SAT 100
[2025-09-08 08:32] VITALS: BP 131/81; O2SAT 97
[2025-09-08 18:06] VITALS: BP 147/85; O2SAT 96
[2025-09-09 02:30] VITALS: BP 119/74; O2SAT 98
[2025-09-09] MEDS ORDERED: CEFTRIAXONE SODIUM 2,000 MG VIAL ONE (08:11)
[2025-09-09 08:45] VITALS: BP 111/70; O2SAT 97
== END 2025-09-09 16:28 | disposition home or self-care (01) | DRG 593 ==
LOC: ER 14:28 → MEDI 22:10 → MEDJ 09-02 19:51
PROVIDERS: General Practice; Internal Medicine; Internal Medicine Infectious Disease; Preventive Medicine Public Health & General Preventive Medicine; ADMIT Internal Medicine; ATTEND Internal Medicine
PROC: BQ2 Imaging, Non-Axial Lower Bones, Computerized Tomography (CT Scan) (ICD-10-PCS; 2025-09-01)
PROC: B54BZZZ Ultrasonography of Right Lower Extremity Veins (ICD-10-PCS; 2025-09-01)
PROC: 0HDKXZZ Extraction of Right Lower Leg Skin, External Approach (ICD-10-PCS; principal; 2025-09-03)
DX: L97.929 Non-pressure chronic ulcer of unspecified part of left lower leg with unspecified severity (principal); L03.116 Cellulitis of left lower limb; I10 Essential (primary) hypertension; E11.9 Type 2 diabetes mellitus without complications; Z79.4 Long term (current) use of insulin; F31.9 Bipolar disorder, unspecified; I87.2 Venous insufficiency (chronic) (peripheral); E66.9 Obesity, unspecified